=== PATIENT | female | born 1985 | race Caucasian/White ===

== ENCOUNTER 2019-11-10 19:27 | Emergency (ER) | payer OTHER ==
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
--- NOTE | 2019-11-10 20:24 | RADIOLOGY REPORT (SQ) ---
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 TECHNIQUE: AP, oblique, and lateral images of the left knee were obtained. COMPARISON: None available FINDINGS: There are no findings to suggest an acute fracture or subluxation. A small suprapatellar joint effusion is seen. The visualized soft tissues are grossly unremarkable. No gross erosions or abnormal soft tissue calcifications are seen. IMPRESSION: There are no findings to suggest an acute fracture or subluxation within the left knee.
[2019-11-10] MEDS ORDERED: ACETAMINOPHEN SOLN 325 MG/10.15 ML UDCUP PO ONE (20:36)
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
[2019-11-11 00:07] VITALS: BP 143/81
== END 2019-11-11 00:04 | disposition left against medical advice (07) ==
LOC: ER 19:27
DX: S09.90XA Unspecified injury of head, initial encounter (principal); S80.02XA Contusion of left knee, initial encounter; S29.9XXA Unspecified injury of thorax, initial encounter; M54.2 Cervicalgia; R51 Headache; R07.89 Other chest pain; M25.562 Pain in left knee; V87.7XXA Person injured in collision between other specified motor vehicles (traffic), initial encounter
CPT/HCPCS: 99284; 73564; 70450; 72125; J3490